=== PATIENT | male | born 1960 | race African-American/Black ===

== ENCOUNTER 2019-08-11 08:07 | Day surgery (SDC) | payer OTHER ==
[~2019-08-11] VITALS: Ht 180.3 cm; Wt 93.0 kg
[2019-08-11] MEDS ORDERED: fentaNYL 0.05 MG/ML VIAL ONE (09:39)
[2019-08-11] MEDS ORDERED: LIDOCAINE 2% 100 MG/5 ML UJET TP ONE (09:39)
[2019-08-11] MEDS ORDERED: MIDAZOLAM 2 MG/2 ML VIAL ONE (09:52)
[2019-08-11] MEDS ORDERED: fentaNYL 0.05 MG/ML VIAL IVP ONE (11:55)
== END 2019-08-11 11:25 | disposition home or self-care (01) ==
LOC: MDS 08:07 → MTU 08:45 → MDS 11:25
PROVIDERS: ATTEND Internal Medicine Gastroenterology
DX: Z12.11 Encounter for screening for malignant neoplasm of colon (principal); D12.4 Benign neoplasm of descending colon; D12.5 Benign neoplasm of sigmoid colon
CPT/HCPCS: 45385; J3010; J2250